=== PATIENT | female | born 1985 | race African-American/Black ===

== ENCOUNTER 2016-04-30 18:29 | Emergency (ER) | payer BC ==
[~2016-04-30] VITALS: Ht 160 cm; Wt 86.2 kg
--- NOTE | 2016-04-30 19:00 | PHYS DOC ---
Past Medical History Past Medical History: No Pertinent History Past Surgical History: Alcohol Use: None Drug Use: None Adult General Chief Complaint Chief Complaint: ABDOMINAL PAIN IN HPI HPI Patient is a 30 year old female who is 14 weeks with her third complaining of 3 days of upper abdominal pain. It bothered her all day long yesterday and was intermitted today. She's had some nausea and some episodes of vomiting although she can't say whether that's really related to the pain, she has had nausea with this . She denies constipation but she does feel "gassy". She hasn't had reflux or heartburn. She did not have this kind of pain in the past or with her other pregnancies. She's had 2 previous pregnancies with deliveries. She did call her OB doctor's office and they said that they would order an outpatient gallbladder ultrasound but they never did call her back, and the pain was bothering her more this evening so she decided to come in and get it checked out. Patient has no history of gallbladder problems or other abdominal problems. She had a as her only surgery. Patient last ate one hour ago, lasagna soup. It did not exacerbate her pain. OB Dr. Aura Ontiveros. Review of Systems Review of Systems Constitutional: Denies fever or chills [] Eyes: Denies change in visual acuity, redness, or eye pain [] HENT: Denies nasal congestion or sore throat [] Respiratory: Denies cough or shortness of breath [] Cardiovascular: Denies chest pain GI: As in history of present illness : Denies vaginal bleeding or pelvic cramping Musculoskeletal: She has pain in the middle of her back corresponding to upper abdominal pain but it does not sound musculoskeletal. Integument: Denies rash or skin lesions [] Neurologic: Denies headache, focal weakness or sensory changes [] Allergies Allergies Allergies Coded Allergies Type Severity Reaction Last Updated Verified No Known Drug Allergies 04/30/16 No Physical Exam Physical Exam Constitutional: Well developed, well nourished, no acute distress, non-toxic appearance. Alert, mentating normally, no acute distress. HENT: Normocephalic, atraumatic, bilateral external ears normal, nose normal. [ ] Eyes: conjunctiva normal, no discharge. [] Neck: Normal range of motion, no stridor. [] Cardiovascular:Heart rate regular rhythm, no murmur [] Lungs & Thorax: Bilateral breath sounds clear to auscultation [] Abdomen: Bowel sounds normal, soft, no masses, no pulsatile masses. No left upper quadrant or epigastric tenderness. Mildly tender in the right upper quadrant when she takes a deep breath, plus minus Floyd's. Gallbladder/liver not palpable. Skin: Warm, dry, no erythema, no rash. [] Extremities: No tenderness, no cyanosis, no clubbing, ROM intact, no edema. [] Neurologic: Alert and oriented X 3, normal motor function, normal sensory function, no focal deficits noted. [] Current Patient Data Vital Signs Vital Signs Date Time Temp Pulse Resp B/P Pulse Ox O2 Delivery O2 Flow Rate FiO2 04/30/16 18:34 98.5 85 16 138/61 96 Room Air 98.5 Lab Values Laboratory Tests Test 04/30/16 18:40 04/30/16 19:15 POC Urine HCG, Qualitative Hcg positive (Negative) White Blood Count 7.2x10^3/uL (4.0-11.0) Red Blood Count 3.91x10^6/uL (3.50-5.40) Hemoglobin 10.6g/dL (12.0-15.5) L Hematocrit 32.6% (36.0-47.0) L Mean Corpuscular Volume 83fL (79-100) Mean Corpuscular Hemoglobin 27pg (25-35) Mean Corpuscular Hemoglobin Concent 33g/dL (31-37) Red Cell Distribution Width 15.5% (11.5-14.5) H Platelet Count 186x10^3/uL (140-400) Neutrophils (%) (Auto) 62% (31-73) Lymphocytes (%) (Auto) 29% (24-48) Monocytes (%) (Auto) 9% (0-9) Eosinophils (%) (Auto) 1% (0-3) Basophils (%) (Auto) 1% (0-3) Neutrophils # (Auto) 4.5x10^3uL (1.8-7.7) Lymphocytes # (Auto) 2.1x10^3/uL (1.0-4.8) Monocytes # (Auto) 0.6x10^3/uL (0.0-1.1) Eosinophils # (Auto) 0.0x10^3/uL (0.0-0.7) Basophils # (Auto) 0.0x10^3/uL (0.0-0.2) Sodium Level 139mmol/L (136-145) Potassium Level 3.6mmol/L (3.5-5.1) Chloride Level 103mmol/L (98-107) Carbon Dioxide Level 25mmol/L (21-32) Anion Gap 11 (6-14) Blood Urea Nitrogen 10mg/dL (7-20) Creatinine 0.7mg/dL (0.6-1.0) Estimated GFR (Cockcroft-Gault) 119.7 BUN/Creatinine Ratio 14 (6-20) Glucose Level 110mg/dL (70-99) H Calcium Level 9.1mg/dL (8.5-10.1) Total Bilirubin 0.2mg/dL (0.2-1.0) Aspartate Amino Transferase (AST) 14U/L (15-37) L Alanine Aminotransferase (ALT) 18U/L (14-59) Alkaline Phosphatase 32U/L (46-116) L Total Protein 6.5g/dL (6.4-8.2) Albumin 2.9g/dL (3.4-5.0) L Albumin/Globulin Ratio 0.8 (1.0-1.7) L Lipase 102U/L (73-393) Laboratory Tests 04/30/16 19:15 Laboratory Tests 04/30/16 19:15 EKG EKG [] Radiology/Procedures Radiology/Procedures [] Course & Med Decision Making Course & Med Decision Making Pertinent Labs and Imaging studies reviewed. (See chart for details) 30-year-old female 14 weeks with some upper abdominal pain more so in the right upper quadrant and epigastrium intermittent but having it more than not, with some nausea and vomiting. She does not believe she is constipated but feels "gassy". She did just eat about an hour ago and that did not exacerbate her pain. No history of exacerbating with eating. Her OB doctor's office was going to order an outpatient gallbladder ultrasound but that has not been done. I discussed with the patient that had she not recently eaten I would think we could do that tonight, but she just literally ate 1 hour ago and I feel that getting a good exam would be unlikely at this time. Her abdominal exam is not significantly suggestive of gallbladder etiology to me, however we will get some labs in the emergency department and she is agreeable to that plan. By her description, I also wonder if she might have some colon gas in the flexures under her diaphragm the might be contributing to her symptoms. Labs unremarkable for gallbladder or other abdominal etiology. I discussed with the patient using a laxative such as milk of magnesia and see if this will affect her pain, if not, she should follow up with her OB doctor's office for a gallbladder ultrasound order. She is agreeable to that plan. [] Dragon Disclaimer Dragon Disclaimer This electronic medical record was generated, in whole or in part, using a voice recognition dictation system. Departure Departure Impression: Primary Impression: Upper abdominal pain Additional Impression: Second trimester Condition: STABLE Patient Instructions: Constipation, Adult, [id number] Additional Instructions: Although I know you do not feel constipated, I believe the pain you're having could be "gas pains" from the upper part of your: Under your diaphragms as we discussed. I recommend that you take one dose of milk of magnesia at bedtime, if by tomorrow morning you have not had good "results", take a second dose of milk of magnesia in the morning. Drink plenty of fluids. If a bowel movement and passing gas does not relieve your pain, follow-up with your OB and I do think an outpatient gallbladder ultrasound would be a good next step as we discussed. Problem Qualifiers DELMA KWON MD Apr 30, 2016 19:00
[2016-04-30 19:23] LABS: BASO % 1 % (0-3); EOS % 1 % (0-3); HEMATOCRIT 32.6 % (36.0-47.0); HEMOGLOBIN 10.6 g/dL (12.0-15.5); LYMPH # 2.1 x10^3/uL (1.0-4.8); LYMPH % 29 % (24-48); MEAN CORPUSCULAR HEMOGLOBIN 27 pg (25-35); MEAN CORPUSCULAR HGB CONC 33 g/dL (31-37); MEAN CORPUSCULAR VOLUME 83 fL (79-100); MONO % 9 % (0-9); NEUT % 62 % (31-73); PLATELET COUNT 186 x10^3/uL (140-400); RED BLOOD COUNT 3.91 x10^6/uL (3.50-5.40); RED CELL DISTRIBUTION WIDTH 15.5 % (11.5-14.5); WHITE BLOOD COUNT 7.2 x10^3/uL (4.0-11.0)
[2016-04-30 19:31] LABS: CALCIUM 9.1 mg/dL (8.5-10.1); CREATININE 0.7 mg/dL (0.6-1.0); GFR 119.7; POTASSIUM 3.6 mmol/L (3.5-5.1)
[2016-04-30 19:37] LABS: ALBUMIN 2.9 g/dL (3.4-5.0); ALBUMIN/GLOBULIN RATIO 0.8 (1.0-1.7); TOTAL BILIRUBIN 0.2 mg/dL (0.2-1.0); TOTAL PROTEIN 6.5 g/dL (6.4-8.2)
[2016-04-30 20:15] VITALS: BP 126/64
== END 2016-04-30 20:20 | disposition home or self-care (01) ==
LOC: ER 18:29
DX: R10.10 Upper abdominal pain, unspecified (principal); Z3A.14 14 weeks gestation of pregnancy
CPT/HCPCS: 36415; 80053; 81025; 83690; 85027; 87086; 99284